=== PATIENT | male | born 1960 | race African-American/Black ===

== ENCOUNTER → 2017-10-09 | Day surgery (SDC) | payer BC ==
[~2017-10-09] MED LIST: ASPIR 8181 MG; CLINDAMYCIN 600MG/D5W 50ML 50 ML IV ONE; FENTANYL CITRATE/PF 100MCG/2 ML INJ ONE; GENTAMICIN 120MG/NS 100ML 100 ML ONE; LIDOCAINE HCL 2% LOCAL INJ 5 ML SDV VIAL INJ ONE; LISINOPRIL10 MG PO; MIDAZOLAM HCL 2 MG/2 ML VIAL ONE; PROAIR HFA INH8.5 GM; PROPOFOL IV EMULSION 10 MG/ML 20 ML VIAL ONE
--- OUTSIDE RECORDS SUMMARY | 2017-10-09 05:38 | XMS REPORT | Clinical Summary ---
Author Author [facility] Organization [facility] Address Unknown Phone Unavailable Care Team Providers Care [employer] Name Role Phone Roberth Tong MD PCP Allergies No Known Allergies Current Medications Prescription Sig. Disp. Refills Start End Date Status Date lisinopril Take 10 mg by mouth once 1 04/22/20 Active (PRINIVIL,ZESTRIL) 10 mg daily. 17 tablet aspirin (ECOTRIN) 81 MG Take 81 mg by mouth once 2 04/16/20 Active enteric coated tablet daily. 17 amitriptyline (ELAVIL) 25 Take 25 mg by mouth 2 03/11/20 Active MG tablet nightly. 17 meloxicam (MOBIC) 15 mg Take 15 mg by mouth once 0 04/22/20 05/19/20 Discontin tablet daily. 17 17 ued levoFLOXacin (LEVAQUIN) Take 1 tablet (750 mg 10 tablet 0 05/19/20 05/29/20 750 MG tablet total) by mouth daily for 17 17 10 days. metroNIDAZOLE (FLAGYL) Take 1 tablet (500 mg 21 tablet 0 05/19/20 500 MG tablet total) by mouth 3 (three) 17 17 times a day for 7 days. Active Problems Not on file Encounters Date Type Specialty Care Team Description 05/19/2017 Emergency Emergency Medicine Timoteo Herrera, Diverticulosis of MD intestine with bleeding, unspecified intestinal tract location (Primary Dx) after 10/08/2016 Social History Tobacco Use Types Packs/Day Years Used Date Never Smoker Alcohol Use Drinks/Week oz/Week Comments No Sex Assigned at Date Recorded Not on file Last Filed Vital Signs Vital Sign Reading Time Taken Blood Pressure 135/76 05/19/2017 5:29 PM CDT Pulse 79 05/19/2017 5:29 PM CDT Temperature 36.2 C (97.2 F) 05/19/2017 5:29 PM CDT Respiratory Rate 16 05/19/2017 5:29 PM CDT Oxygen Saturation 99% 05/19/2017 5:29 PM CDT Inhaled Oxygen - - Concentration Weight - - Height 157.5 cm (5' 2") 05/19/2017 11:32 AM CDT Body Mass Index - - Plan of Treatment Health Maintenance Due Date Last Done Comments COLONOSCOPY 10/17/2011 INFLUENZA VACCINE 02/24/2017 Results * CT Abdomen Pelvis W Contrast (05/19/2017 5:02 PM) Specimen Performing Laboratory [facility] [address] [facility] [place] [address] Narrative EXAMINATION:CT ABDOMEN PELVIS W CONTRAST CLINICAL HISTORY:abd painrectal bleeding TECHNIQUE: Multiple axial images of the abdomen and pelvis were obtained following intravenous administration of iodinated contrast. Sagittal and coronal computerized reformatted images were also obtained.Automatic exposure control and iterative reconstruction techniques used to reduce dose. COMPARISON: None FINDINGS: The liver, gallbladder, spleen, pancreas, adrenals and kidneys are within normal limits. There is no evidence of retroperitoneal lymphadenopathy free fluid present The appendix is well-visualized and is no evidence of appendicitis Mild diverticulosis in the colon. Minimal wall thickening of the sigmoid colon is present and most likely is secondary to underdistention, however an appropriate clinical setting, mild diverticulitis cannot entirely be excluded. There is no evidence of abscess or free air. IMPRESSION: Diverticulosis in the colon. Minimal wall thickening of the sigmoid colon could simply be secondary to underdistention, however an appropriate clinical setting , mild diverticulitis cannot be excluded. There is no evidence of abscess or free air. [id number] Procedure Note Interface, Radiology Results Incoming - 05/19/2017 5:08 PM CDT EXAMINATION: CT ABDOMEN PELVIS W CONTRAST CLINICAL HISTORY: abd pain rectal bleeding TECHNIQUE: Multiple axial images of the abdomen and pelvis were obtained following intravenous administration of iodinated contrast. Sagittal and coronal computerized reformatted images were also obtained.Automatic exposure control and iterative reconstruction techniques used to reduce dose. COMPARISON: None FINDINGS: The liver, gallbladder, spleen, pancreas, adrenals and kidneys are within normal limits. There is no evidence of retroperitoneal lymphadenopathy free fluid present The appendix is well-visualized and is no evidence of appendicitis Mild diverticulosis in the colon. Minimal wall thickening of the sigmoid colon is present and most likely is secondary to underdistention, however an appropriate clinical setting, mild diverticulitis cannot entirely be excluded. There is no evidence of abscess or free air. IMPRESSION: Diverticulosis in the colon. Minimal wall thickening of the sigmoid colon could simply be secondary to underdistention, however an appropriate clinical setting , mild diverticulitis cannot be excluded. There is no evidence of abscess or free air. [facility]-[id number] * Estimated GFR (05/19/2017 3:39 PM) Component Value Ref Range GFR Non Af Amer 63 mL/min/1.73 m2 GFR Af Amer 76 mL/min/1.73 m2 Comment: Chronic kidney disease: <60 mL/min/1.73m2 Kidney failure: <15 mL/min/1.73m2 The estimated GFR is calculated from the IDMS-traceable Modification of Diet in Renal Disease Equation. The accuracy of the calculation is poor when the creatinine is normal. Calculated values >90 mL/min/1.73m2 are not reported. This equation has not been validated in children (<18 years), women, the elderly (>70 years), or ethnic groups other than Caucasians and Americans. Specimen Performing Laboratory Plasma specimen [facility] DEPARTMENT OF PATHOLOGY AND [facility] MEDICINE [address] [place] [address]. [address] [place] [id number] * Prothrombin time with INR (05/19/2017 3:39 PM) Component Value Ref Range Prothrombin time 13.4 12.0 - 15.0 sec INR 1.0 Comment: The International Normalized Ratio (INR) is a therapeutic monitoring tool for patients who are stable on oral anticoagulant therapy. An INR of 2.0-3.0 is suggested for deep vein thrombosis/pulmonary embolism. Specimen Performing Laboratory Blood [facility] OF PATHOLOGY AND [facility] MEDICINE [address] [place] [address]. [address] [place] [id number] * CBC with platelet and differential (05/19/2017 3:39 PM) Component Value Ref Range WBC 7.5 4.5 - 11.0 k/uL RBC 5.57 4.40 - 6.00 M/uL HGB 16.1 14.0 - 18.0 g/dL HCT 46.4 41.0 - 51.0 % MCV 83.3 82.0 - 100.0 fL MCH 28.9 27.0 - 34.0 pg MCHC 34.7 31.0 - 37.0 g/dL RDW - SD 40.6 37.0 - 55.0 fL MPV 9.3 8.8 - 13.2 fL Platelet count 255 150 - 400 K/uL Nucleated RBC 0.00 /100 WBC Neutrophils 43.2 39.0 - 69.0 % Lymphocytes 45.3 (H) 25.0 - 45.0 % Monocytes 7.7 0.0 - 10.0 % Eosinophils 2.8 0.0 - 5.0 % Basophils 0.7 0.0 - 1.0 % Immature granulocytes 0.3Comment: "Immature granulocytes" 0.0 - 1.0 % (promyelocytes, myelocytes, metamyelocytes) Specimen Performing Laboratory Blood [facility] DEPARTMENT OF PATHOLOGY AND [facility] MEDICINE [address] [place] [id number] * Type and screen (05/19/2017 3:39 PM) Component Value Ref Range ABO grouping O Rh type POS Antibody screen (gel) NEG Specimen Performing Laboratory Blood [facility] DEPARTMENT OF PATHOLOGY AND [address] [address] * Comprehensive metabolic panel (05/19/2017 3:39 PM) Component Value Ref Range Sodium 139 135 - 148 mEq/L Potassium 4.6 3.5 - 5.0 mEq/L Chloride 102 99 - 109 mEq/L CO2 25 24 - 31 mEq/L Anion gap 12 7 - 15 mEq/L Comment: Starting from October , anion gap calculation no longer incorporates potassium. Please note the change. BUN 15 8 - 24 mg/dL Creatinine 1.2 0.5 - 1.5 mg/dL Glucose 103 (H) 65 - 99 mg/dL Calcium 9.2 8.6 - 10.6 mg/dL Protein 7.5 6.3 - 8.2 g/dL Albumin 4.4 3.5 - 5.0 g/dL A/G ratio 1.42 0.70 - 3.80 Alkaline phosphatase 46 30 - 115 U/L AST 29 15 - 46 U/L ALT 38 10 - 55 U/L Total bilirubin 0.6 0.2 - 1.2 mg/dL Specimen Performing Laboratory Plasma specimen [facility] DEPARTMENT OF PATHOLOGY AND GENOMIC MEDICINE [address] [place] [address]. [address] [place] [phone] after 10/08/2016 Insurance Payer Benefit Subscriber ID Type Phone Address Plan / Group BCBS BCBS xxxxxxxxxxxx PPO CHOICE PPO/FEDERA L [id number] PPO
--- NOTE | 2017-10-09 09:01 | Operative Report ---
DATE OF PROCEDURE: October 09, 2017 PREOPERATIVE DIAGNOSIS: Elevated PSA, 7.5. POSTOPERATIVE DIAGNOSIS: Elevated PSA, 7.5. PROCEDURES: 1. Prostate ultrasound. 2. Ultrasound-guidance needle biopsy. 3. Needle biopsy of prostate. ANESTHESIA: General. ESTIMATED BLOOD LOSS: Minimal. COMPLICATIONS: None. INDICATIONS: Mr. Benito is a 56-year-old male with an elevated PSA. He and I had a long discussion regarding alternatives, risks, and benefits including doing nothing, prostate biopsy. He voiced understanding of the options, alternatives, the risks and benefits. He has taken his prophylactic antibiotics as well as his prophylactic enema. He now presents to the operating room for biopsy. PROCEDURE IN DETAIL: After informed consent was obtained, a time out was taken, the patient had been given his prophylactic antibiotics including both gentamicin and clindamycin. He was placed in the left lateral decubitus and prepped and draped in standard fashion for prostate biopsy. 1. PROSTATE ULTRASOUND: Utilizing a plethora of lubrication, the transrectal ultrasound probe was inserted atraumatically rectally. A prostate ultrasound was performed revealing a volume of approximately 22 mL. There were some hypoechoic areas on the posterior right mid and apex, no calcifications. Normal-appearing seminal vesicles. IMPRESSION: 1. Benign prostatic hypertrophy. 2. Small hypoechoic areas, right side. 2. ULTRASOUND GUIDANCE: I was present. I utilized the ultrasound to guide the needle biopsy of the prostate. 3. NEEDLE-BIOPSY OF PROSTATE: A total of 10 core biopsies of prostate were taken. cores on the right and left base, 2 cores a lateral and a medial, biopsy from the right and left mid and apex. These were passed off the table as specimens in a sextant fashion. Patient tolerated the procedure well with minimal bleeding. He was awakened and transported to recovery room in stable condition. Job#: [id number]
== END | disposition home or self-care (01) ==
LOC: OR 05:36
PROVIDERS: ATTEND Urology
DX: C61 Malignant neoplasm of prostate (principal); N40.1 Benign prostatic hyperplasia with lower urinary tract symptoms; R35.1 Nocturia; R39.14 Feeling of incomplete bladder emptying; I10 Essential (primary) hypertension; J45.909 Unspecified asthma, uncomplicated; Z01.810 Encounter for preprocedural cardiovascular examination; Z79.82 Long term (current) use of aspirin; Z68.32 Body mass index [BMI] 32.0-32.9, adult; Z80.42 Family history of malignant neoplasm of prostate
CPT/HCPCS: 55700; 76872; 76942; 88305; 88342; 93005; J1580; J2001; J2250

== ENCOUNTER → 2019-03-10 | Outpatient (CLI) | payer BC ==
[~2019-03-10] MED LIST changes: -CLINDAMYCIN 600MG/D5W 50ML 50 ML IV ONE; -FENTANYL CITRATE/PF 100MCG/2 ML INJ ONE; -GENTAMICIN 120MG/NS 100ML 100 ML ONE; -LIDOCAINE HCL 2% LOCAL INJ 5 ML SDV VIAL INJ ONE; -MIDAZOLAM HCL 2 MG/2 ML VIAL ONE; -PROPOFOL IV EMULSION 10 MG/ML 20 ML VIAL ONE
--- NOTE | 2019-03-10 12:51 | Diagnostic Imaging Report ---
Lumbar spine series, 5 views. History: Low back pain. Comparison: None available. Discussion: The paraspinal soft tissues are unremarkable. The alignment of the lumbar spine is normal. There is no evidence of fracture, spondylolisthesis, or spondylolysis. The intervertebral disc spaces are within normal limits. Small osteophytes are scattered throughout the lumbar spine. IMPRESSION: Mild degenerative changes of the lumbar spine. Signed by: Luis Kasper on 03/10/2019 12:48 PM
== END ==
LOC: EDSEX → RAD 11:54
PROVIDERS: ATTEND Internal Medicine
DX: M54.5 Low back pain (principal)
CPT/HCPCS: 72110

== ENCOUNTER → 2019-03-22 | Outpatient (CLI) | payer BC ==
--- NOTE | 2019-03-22 18:00 | Diagnostic Imaging Report ---
Bone Scan, delayed phase INDICATION: C61 Malignant neoplasm of prostate. S/p radiation therapy. C/o back and shoulder pain COMPARISON: None REPORT: Approximately 3 hours following intravenous administration of 27.5 mCi of Tc-99m MDP, delayed total body images in the anterior and posterior projections and selected spot images were obtained. Small punctate focus of mildly increased tracer in the anterior aspect right humeral shaft proximally. Mildly increased tracer is seen inferior aspect of the left glenoid. Otherwise, distribution of tracer activity is unremarkable throughout the skeletal system. No abnormal accumulation of tracer is seen in the soft tissues or urinary tract. IMPRESSION: No scan evidence of metastatic bone disease. The osteoblastic foci in the right humerus proximally and in the inferior aspect of the left glenoid are likely degenerative in etiology. Neither lesion has the intense osteoblastic activity typical of bone metastasis related to prostate cancer. Recommend correlative imaging. Signed by: Dr. Mayte Rae M.D. on 03/22/2019 5:57 PM
== END ==
LOC: EDSEX → NM 07:09
PROVIDERS: ATTEND Internal Medicine
DX: Z12.89 Encounter for screening for malignant neoplasm of other sites (principal); Z85.46 Personal history of malignant neoplasm of prostate; M25.512 Pain in left shoulder; M25.511 Pain in right shoulder; M54.9 Dorsalgia, unspecified
CPT/HCPCS: 78306; A9503

== ENCOUNTER 2019-05-19 09:00 | Outpatient (RCR) | payer BC | END 2019-05-26 | LOC: EDSEX → PT 09:00 | PROVIDERS: ATTEND Internal Medicine | DX: M47.896 Other spondylosis, lumbar region (principal); M54.5 Low back pain; M62.81 Muscle weakness (generalized); M53.86 Other specified dorsopathies, lumbar region ==

== ENCOUNTER → 2022-03-11 | Outpatient (CLI) | payer BC | LOC: DX 10:28 | PROVIDERS: ATTEND Internal Medicine | DX: Z13.820 Encounter for screening for osteoporosis (principal) | CPT/HCPCS: 77080 ==